=== PATIENT | female | born 1985 | race Two or more races ===

== ENCOUNTER 2016-05-03 17:54 | Observation (INO) | payer SELFPAY ==
[2016-05-03] MEDS ORDERED: ACETAMINOPHEN 325 MG TABLET. PO PRN (18:45)
[2016-05-03] MEDS ORDERED: IV RINGERS,LACTATED 1000ML 1,000 ML IV SCH (19:00)
[2016-05-03] MEDS ORDERED: HYDROXYZINE IM 50 MG/ML VIAL. IM ONE (19:00)
[2016-05-03 19:58] VITALS: BP 112/66
[2016-05-03] MEDS ORDERED: TERBUTALINE 1 MG/ML VIAL. SQ ONE (20:00)
--- NOTE | 2016-05-03 23:05 | RAD ---
PROCEDURE Limited OB ultrasound. HISTORY Patient fell down stairs. Pain and contractions. Possible placenta previa. TECHNIQUE Limited OB ultrasound was performed. No comparison for this is provided at the time of dictation. FINDINGS Single live intrauterine has heart tones of 137 beats per minute. Estimated gestational age by ultrasound is 31 weeks 2 days. Patient is clinically 30 weeks 0 days. Biparietal diameter measures 7.47 centimeters, 30 weeks 0 days. Head circumference is 28.69 centimeters, 31 weeks 4 days. Abdominal circumference is 28.40 centimeters, 32 weeks 3 days. Femur length is 5.97 centimeters, 31 weeks 1 day. HC/AC ratio is 1.01. Estimated weight is 1824 grams, 69th percentile. Presentation is cephalic. There is no previa or abruption. Placenta is anterior. Internal cervical os demonstrates no funneling. The endocervical canal is prominent measuring a centimeter in diameter, although amniotic fluid index is within normal limits. Cervix appears normal in length. IMPRESSION - Single live intrauterine measures 31 weeks 2 days by ultrasound. heart tones of 137 beats per minute are noted. - Amniotic fluid index is within normal limits. - No evidence of previa or abruption. Cervix appears normal in length without funneling, although internal cervical os is prominent diffusely, 1 centimeter in diameter. Electronically signed by: Harvey Mckeon MD (May 03, 2016 23:03:54)
== END 2016-05-03 22:45 | disposition home or self-care (01) ==
LOC: 3 SO LND 17:54
PROVIDERS: ADMIT Obstetrics & Gynecology; ATTEND Obstetrics & Gynecology
DX: O26.893 Other specified pregnancy related conditions, third trimester (principal); R10.30 Lower abdominal pain, unspecified; M54.9 Dorsalgia, unspecified; M79.652 Pain in left thigh; M79.651 Pain in right thigh; W10.9XXA Fall (on) (from) unspecified stairs and steps, initial encounter; Y93.89 Activity, other specified; Y92.89 Other specified places as the place of occurrence of the external cause; Y99.8 Other external cause status
CPT/HCPCS: 76815; 96360; G0378; G0379; J3105; J3410; J7120

== ENCOUNTER 2016-06-01 07:00 | Inpatient (IN) | payer SELFPAY ==
[~2016-06-01] VITALS: Ht 152.4 cm; Wt 66.2 kg
[2016-06-01] MEDS ORDERED: MAGNESIUM SULFATE 4GM 100 ML IV ONE (08:30)
[2016-06-01] MEDS: MAGNESIUM SULFATE 20GM 500 ML IV SCH ×2 (08:55→19:21)
[2016-06-01] MEDS ORDERED: MAGNESIUM SULFATE IV ONE (09:00)
[2016-06-01] MEDS ORDERED: fentaNYL PF VIAL 100 MCG/2 ML VIAL IV PRN (09:00)
[2016-06-01] MEDS ORDERED: 0.9 % SODIUM CHLORIDE 10 ML DISP.SYRIN. IV PRN (09:00)
[2016-06-01] MEDS ORDERED: DEXTROSE 5% IV ONE (09:00)
[2016-06-01] MEDS ORDERED: TERBUTALINE 1 MG/ML VIAL. SQ PRN (09:00)
[2016-06-01] MEDS ORDERED: AMPICILLIN SODIUM 2 GM in IV NORMAL SALINE 100ML 100 ML IV ONE (09:00)
[2016-06-01] MEDS ORDERED: IBUPROFEN 600 MG TABLET. PO PRN (09:00)
[2016-06-01] MEDS ORDERED: OXYTOCIN 30 UNIT/500 ML PREMIX 500 ML IV PRN (09:00)
[2016-06-01] MEDS ORDERED: LIDOCAINE 1% PF 30 ML VIAL. INJ PRN (09:00)
[2016-06-01] MEDS: BETAMET ACET&NA PHOS 30 MG/5 ML VIAL. IM SCH (09:01)
[2016-06-01] MEDS: ERYTHROMYCIN BASE 250 MG TABLET PO SCH ×3 (10:04→21:07)
--- NOTE | 2016-06-01 11:04 | PDOC1 ---
OB - History Hx of Present Care: Good Care Ultrasounds: Normal mid trimester US Obstetrical Complications: None Medical Complications: None Other Concerns: Previous c/s Past Family/Social History * Past Medical, Surgical, Family and Obstetric Histories reviewed from chart. Rubella: Immune RPR/VDRL: Negative GBS Status: Unknown HBsAG: Negative OB - Chief Complaint & HPI Date of Admission: Date of Admission: Jun 01, 2016 at 07:00 Chief Complaint/History : 2 Para: 1 EGA: 34 Reason for admission: rupture of membranes Admission Nurse Assessment Rev: Yes Problems: OB - Admission Exam Physical Exam Vitals: VS - Last 72 Hours, by Label Date Time Temp Pulse Resp B/P Pulse Ox O2 Delivery O2 Flow Rate FiO2 06/01/16 09:56 98.1 98.1 HEENT: Normal Heart: Regular Rate Lungs: Clear Abdomen: Gravid, Non tender, Soft Extremities: Edema Reflexes: Normal Cervical Dilatation: 2cm Effacement: 0% Station: Ballotable Membranes: Ruptured Amniotic Fluid: Clear Heart Rate: Normal Accelerations: Accelerations Present Decelerations: No decelerations Contractions on Admission: 6-10 Minutes Apart Intensity: Mild Text A: 34 wks IUP Previous c/s PPROM Sono wt: 2318 gm, vertex GBS unknown P: Admit for labor management. Start IV abx, corticosteroids and magnesium sulfate. Anticipate repeat c/s after steroids completed. CHER LOMBARDI Jr, MD Jun 01, 2016 11:04
[2016-06-01 11:11] LABS: BASO % 0 % (0-3); EOS % 0 % (0-3); HEMATOCRIT 37.2 % (36.0-47.0); HEMOGLOBIN 12.5 g/dL (12.0-15.5); LYMPH # 1.9 x10^3/uL (1.0-4.8); LYMPH % 18 % (24-48); MEAN CORPUSCULAR HEMOGLOBIN 30 pg (25-35); MEAN CORPUSCULAR HGB CONC 34 g/dL (31-37); MEAN CORPUSCULAR VOLUME 89 fL (79-100); MONO % 7 % (0-9); NEUT % 75 % (31-73); PLATELET COUNT 236 x10^3/uL (140-400); RED BLOOD COUNT 4.17 x10^6/uL (3.50-5.40); RED CELL DISTRIBUTION WIDTH 13.3 % (11.5-14.5); WHITE BLOOD COUNT 10.9 x10^3/uL (4.0-11.0)
--- NOTE | 2016-06-01 11:50 | RAD ---
Indication ruptured membranes. Assess size and dates and position. Obstetrical ultrasound examination was performed. The study is limited. Note is made of a previous examination 05/03/2016. A single viable intrauterine fetus is seen. The presentation is vertex. heart rate of a 123 was documented. The femoral length of 6.7 cm, abdominal circumference of 31 cm, head circumference of 29 cm and biparietal diameter of 8.3 cm are compatible with a gestational age of approximately 33 weeks 4 days. The current study would suggest an EDC of 07/16/2016. (Note is made of discrepancy with the examination 05/03/2016. That study suggested an expected date of confinement 07/03/2016). The estimated weight is approximately 2375 g. The amniotic fluid index is low and calculated at 3.9. The cervix was not well demonstrated on this exam. The placenta is predominantly anterior and fundal. IMPRESSION: Single viable intrauterine fetus. Vertex presentation. Calculated MARLIN 3.9. This examination would suggest a gestational age of approximately 33 weeks 4 days. There is a discrepancy on the EDC associated with this examination and the study one month ago.
[2016-06-01] MEDS: NORMAL SALINE IV SCH ×3 (12:50→21:07)
[2016-06-01] MEDS: AMPICILLIN SODIUM IV SCH ×3 (12:50→21:07)
[2016-06-01] MEDS: IV RINGERS,LACTATED 1000ML 1,000 ML IV SCH ×3 (12:50→22:48)
[2016-06-01] MEDS ORDERED: AMPICILLIN SODIUM 1 GM in IV NORMAL SALINE 50ML 50 ML IV SCH (13:00)
[2016-06-02] MEDS: NORMAL SALINE IV SCH ×5 (02:20→21:24)
[2016-06-02] MEDS: AMPICILLIN SODIUM IV SCH ×5 (02:20→21:24)
[2016-06-02 05:29] LABS: BASO % 0 % (0-3); EOS % 0 % (0-3); HEMATOCRIT 32.3 % (36.0-47.0); HEMOGLOBIN 10.6 g/dL (12.0-15.5); LYMPH # 1.5 x10^3/uL (1.0-4.8); LYMPH % 13 % (24-48); MEAN CORPUSCULAR HEMOGLOBIN 30 pg (25-35); MEAN CORPUSCULAR HGB CONC 33 g/dL (31-37); MEAN CORPUSCULAR VOLUME 91 fL (79-100); MONO % 6 % (0-9); NEUT % 81 % (31-73); PLATELET COUNT 224 x10^3/uL (140-400); RED BLOOD COUNT 3.55 x10^6/uL (3.50-5.40); RED CELL DISTRIBUTION WIDTH 13.6 % (11.5-14.5)
[2016-06-02] MEDS: MAGNESIUM SULFATE 20GM 500 ML IV SCH ×2 (05:29→15:30)
[2016-06-02 06:18] LABS: RPR REFLEX Non Reactive (Non Reactive)
--- NOTE | 2016-06-02 08:12 | PDOC ---
Provider Note Provider Note Stable uterus NTTP +FM Infrequent CTX FHT reassuring CCC planned RC/S in AM JULIEN CELIS MD Jun 02, 2016 08:12
[2016-06-02] MEDS: ERYTHROMYCIN BASE 250 MG TABLET PO SCH ×3 (10:03→21:24)
[2016-06-02] MEDS: BETAMET ACET&NA PHOS 30 MG/5 ML VIAL. IM SCH (10:04)
[2016-06-02] MEDS: IV RINGERS,LACTATED 1000ML 1,000 ML IV SCH (15:30)
[2016-06-03] VITALS (10 sets, daily range): BP systolic 85–123; BP diastolic 34–68
[2016-06-03] MEDS: NORMAL SALINE IV SCH ×3 (00:33→09:00)
[2016-06-03] MEDS: MAGNESIUM SULFATE 20GM 500 ML IV SCH (00:33)
[2016-06-03] MEDS: AMPICILLIN SODIUM IV SCH ×3 (00:33→09:00)
[2016-06-03] MEDS ORDERED: CITRIC ACID/SODIUM CITRATE 30 ML SOLUTION. PO PRN (06:45)
[2016-06-03] MEDS ORDERED: HYDROmorphone 2 MG/ML VIAL IV PRN (07:00)
[2016-06-03] MEDS ORDERED: IV RINGERS,LACTATED 1000ML 1,000 ML IV SCH (07:00)
[2016-06-03] MEDS ORDERED: LIDOCAINE 1% 1 ML SYRINGE. ID PRN (07:00)
[2016-06-03] MEDS ORDERED: MORPHINE SULFATE 2 MG/ML DISP.SYRIN. IV PRN (07:00)
[2016-06-03] MEDS ORDERED: PROCHLORPERAZINE 10 MG/2 ML VIAL. IV PRN ×2 (07:00→07:30)
[2016-06-03] MEDS ORDERED: ONDANSETRON PF 4 MG/2 ML VIAL. ONE (07:07)
[2016-06-03] MEDS ORDERED: FAMOTIDINE 20 MG/2 ML VIAL ONE (07:07)
[2016-06-03] MEDS ORDERED: OXYTOCIN 10 UNIT/ML VIAL. ONE (07:08)
[2016-06-03] MEDS ORDERED: SUCCINYLCHOLINE 200 MG/10 ML VIAL. ONE (07:08)
[2016-06-03] MEDS ORDERED: fentaNYL PF VIAL 100 MCG/2 ML VIAL ONE (07:08)
[2016-06-03] MEDS ORDERED: MORPHINE PF 5 MG/10 ML VIAL. ONE (07:09)
[2016-06-03 07:15] LABS: BASO % 0 % (0-3); EOS % 0 % (0-3); HEMATOCRIT 32.1 % (36.0-47.0); HEMOGLOBIN 10.7 g/dL (12.0-15.5); LYMPH # 1.6 x10^3/uL (1.0-4.8); LYMPH % 11 % (24-48); MEAN CORPUSCULAR HEMOGLOBIN 30 pg (25-35); MEAN CORPUSCULAR HGB CONC 33 g/dL (31-37); MEAN CORPUSCULAR VOLUME 91 fL (79-100); MONO % 9 % (0-9); NEUT % 80 % (31-73); PLATELET COUNT 242 x10^3/uL (140-400); RED BLOOD COUNT 3.54 x10^6/uL (3.50-5.40); RED CELL DISTRIBUTION WIDTH 13.4 % (11.5-14.5); WHITE BLOOD COUNT 13.9 x10^3/uL (4.0-11.0)
[2016-06-03] MEDS ORDERED: diphenhydrAMINE 50 MG/ML VIAL IV PRN ×2 (07:30)
[2016-06-03] MEDS ORDERED: ONDANSETRON PF 4 MG/2 ML VIAL. IV PRN ×2 (07:30→09:00)
[2016-06-03] MEDS ORDERED: NALOXONE 0.4 MG/ML VIAL. IV PRN (07:30)
[2016-06-03] MEDS ORDERED: NALBUPHINE 10 MG/ML AMPUL. IV PRN (07:30)
[2016-06-03] MEDS ORDERED: ATROPINE 0.5 MG/5 ML DISP.SYRIN. IV PRN (07:30)
[2016-06-03] MEDS ORDERED: KETOROLAC TROMETHAMINE 30 MG/ML INJ. IV ONE (07:30)
[2016-06-03 08:04] LABS: PLT ESTIMATE ADEQUATE (ADEQUATE); POLYCHROMASIA PRESENT
[2016-06-03] MEDS ORDERED: ePHEDrine PF IN SALINE 50 MG/5 ML DISP.SYRIN IV ONE (08:13)
--- NOTE | 2016-06-03 08:53 | PDOC ---
BRIEF OPERATIVE NOTE Pre-Op Diagnosis 34 week PPROM Post-Op Diagnosis Same Procedure Performed RLTC/S Surgeon Benjamin Anesthesia Type: Regional Blood Loss 800cc Specimens Obtained none Findings male 5#s 4oz Complications None JULIEN CELIS MD Jun 03, 2016 08:53
[2016-06-03] MEDS ORDERED: oxyCODONE/APAP 5/325 1 TAB TABLET PO PRN (09:00)
[2016-06-03] MEDS ORDERED: OXYTOCIN 30 UNIT/500 ML PREMIX 500 ML IV PRN (09:00)
[2016-06-03] MEDS ORDERED: MMR per PROTOCOL. MC PRN (09:00)
[2016-06-03] MEDS ORDERED: MAGNESIUM HYDROXIDE 2,400 MG/30 ML ORAL.SUSP. PO PRN (09:00)
[2016-06-03] MEDS ORDERED: MAG HYDROX/ALUMINUM HYD/SIMETH 30 ML ORAL.SUSP PO PRN (09:00)
[2016-06-03] MEDS ORDERED: diphenhydrAMINE ORAL ELIXIR 12.5 MG/5 ML ML PO PRN (09:00)
[2016-06-03] MEDS ORDERED: ZOLPIDEM 5 MG TABLET. PO PRN (09:00)
[2016-06-03] MEDS ORDERED: 0.9 % SODIUM CHLORIDE 10 ML DISP.SYRIN. IV PRN (09:00)
[2016-06-03] MEDS: IV RINGERS,LACTATED 1000ML 1,000 ML IV SCH (10:08)
--- NOTE | 2016-06-03 10:52 | OP ---
DATE OF SURGERY: 06/03/2016 PREOPERATIVE DIAGNOSIS: A 34-week intrauterine complicated by pre-term, premature rupture of membranes. POSTOPERATIVE DIAGNOSES: 1. A 34-week intrauterine complicated by pre-term, premature rupture of membranes. 2. Left gluteal cyst. 3. No evidence of a previous vertical hysterotomy. SURGEON: Dr. Kahlil Alexander. COMPUTER TRAINING SPECIALIST: Kenya Boucher M.D. ANESTHESIA: Regional. ESTIMATED BLOOD LOSS: 800 mL. SPECIMENS: None. FINDINGS: Male infant, Apgars 8, 9 and 9, weight 5 pounds 4 ounces. Normal uterus and tubes. Left gluteal cyst appreciated. COMPLICATIONS: None. CONDITION: Stable. DESCRIPTION OF PROCEDURE: After risks, benefits, indications, and alternatives were discussed in detail with the patient, the patient was brought to the OR theater, placed in the supine position with left lateral uterine displacement. After adequate regional anesthesia, the patient was prepped and draped in the usual sterile manner. A previous midline incision was taken down in toto with Bovie cautery and scalpel. Subcutaneous tissue was taken down with Bovie cautery. Parietal peritoneum was then entered bluntly after incising the fascia with a gloved hand. The fascial incision was extended superiorly and inferiorly with Bovie cautery. Sponges were placed within the gutters. Bladder blade was placed. Bladder flap was created. There were some uterine adhesions at the lower uterine segment, most likely from the previous low-transverse hysterotomy incision, and a low-transverse hysterotomy incision was made well above the bladder and adhesions with a scalpel and carried down through the deeper, upper, and lower uterine segments with the scalpel using Allis clamps to clear the myometrium from the parts. Once into the endometrial cavity, the incision was extended laterally and upwardly separately with bandage scissors. The gloved hand was placed within the lower uterine segment and used to elevate head. With fundal pressure from the housekeeping assistant, the was delivered on the anterior abdominal wall. Infant cried spontaneously and moved all extremities. Approximately, 40 seconds were ____ along with cord stripping to assure good blood supply to the infant. Cord was doubly clamped and transected between the two clamps. The was handed off to nursing care in attendance after it was bulb-suctioned. Cord blood samples were taken, placenta delivered spontaneously intact, 3-vessel cord. Uterus was extricated on the anterior abdominal wall, wrapped ____ on the laparotomy sponge. Any adherent membranes were wiped free with laparotomy sponge. The low-transverse hysterotomy incision was re-approximated with 0 Monocryl in a running locking manner and imbricated with 0 Monocryl in a vertical mattress stitch fashion. Posterior cul-de-sac was inspected and noted to be free of any blood or debris. The gluteal cyst on the left was noted. The uterus was placed back within this pelvic cavity. The previous two sponges were removed. The lower uterine segment was once again inspected and noted to be hemostatic. The rectus fascia along with the peritoneum was re-approximated with 0 PDS in a running manner. The skin was re-approximated with 3-0 Vicryl in an interrupted fashion x 3 stitches, taking off the incision. The remaining incision was re-approximated with Insorb love. Sponge, needle and instrument counts were correct x 2 per the nursing staff. KAHLIL ALEXANDER MD DR: JOELLE/matt JOB#: [id number] / [id number]
[2016-06-03] MEDS: IBUPROFEN 800 MG TABLET. PO SCH (14:00)
[2016-06-03] MEDS ORDERED: KETOROLAC TROMETHAMINE 30 MG/ML INJ. IV PRN (16:45)
[2016-06-03] MEDS ORDERED: FERROUS SULFATE 325 MG TABLET. PO SCH (17:00)
[2016-06-04 05:57] LABS: BASO % 0 % (0-3); EOS % 0 % (0-3); HEMATOCRIT 30.2 % (36.0-47.0); HEMOGLOBIN 10.3 g/dL (12.0-15.5); LYMPH # 2.1 x10^3/uL (1.0-4.8); LYMPH % 18 % (24-48); MEAN CORPUSCULAR HEMOGLOBIN 31 pg (25-35); MEAN CORPUSCULAR HGB CONC 34 g/dL (31-37); MEAN CORPUSCULAR VOLUME 90 fL (79-100); MONO % 9 % (0-9); NEUT % 73 % (31-73); PLATELET COUNT 211 x10^3/uL (140-400); RED BLOOD COUNT 3.35 x10^6/uL (3.50-5.40); RED CELL DISTRIBUTION WIDTH 13.6 % (11.5-14.5); WHITE BLOOD COUNT 11.8 x10^3/uL (4.0-11.0)
[2016-06-04 06:00] VITALS: BP 97/61
[2016-06-04] MEDS: IBUPROFEN 800 MG TABLET. PO SCH ×3 (06:21→21:31)
[2016-06-04] MEDS: SIMETHICONE 80 MG TAB.CHEW PO PRN ×2 (09:06→14:36)
[2016-06-04] MEDS: DOCUSATE SODIUM 100 MG CAPSULE. PO PRN ×2 (09:06→17:42)
[2016-06-04 10:38] VITALS: BP 110/69
[2016-06-04 15:00] VITALS: BP 119/59
[2016-06-04] MEDS: oxyCODONE/APAP 5/325 1 TAB TABLET PO PRN (17:43)
[2016-06-04 23:03] VITALS: BP 115/70
[2016-06-05] MEDS: IBUPROFEN 800 MG TABLET. PO SCH ×2 (05:57→20:01)
[2016-06-05] MEDS: oxyCODONE/APAP 5/325 1 TAB TABLET PO PRN (08:27)
[2016-06-05] MEDS: DOCUSATE SODIUM 100 MG CAPSULE. PO PRN ×2 (08:27→20:01)
--- NOTE | 2016-06-05 16:14 | PDOC ---
OB Progress Note Date of Service 06/05/16 Time of Evaluation 1610 Problem List Problems Medical Problems: (1) premature rupture of membranes (PPROM) with unknown onset of labor Status: Acute Notes Pt. feeling well. Breast feeding. Pain controlled. Lab Laboratory Tests Test 06/04/16 05:35 White Blood Count 11.8x10^3/uL (4.0-11.0) Red Blood Count 3.35x10^6/uL (3.50-5.40) Hemoglobin 10.3g/dL (12.0-15.5) Hematocrit 30.2% (36.0-47.0) Mean Corpuscular Volume 90fL (79-100) Mean Corpuscular Hemoglobin 31pg (25-35) Mean Corpuscular Hemoglobin Concent 34g/dL (31-37) Red Cell Distribution Width 13.6% (11.5-14.5) Platelet Count 211x10^3/uL (140-400) Neutrophils (%) (Auto) 73% (31-73) Lymphocytes (%) (Auto) 18% (24-48) Monocytes (%) (Auto) 9% (0-9) Eosinophils (%) (Auto) 0% (0-3) Basophils (%) (Auto) 0% (0-3) Neutrophils # (Auto) 8.6x10^3uL (1.8-7.7) Lymphocytes # (Auto) 2.1x10^3/uL (1.0-4.8) Monocytes # (Auto) 1.0x10^3/uL (0.0-1.1) Eosinophils # (Auto) 0.0x10^3/uL (0.0-0.7) Basophils # (Auto) 0.0x10^3/uL (0.0-0.2) Medications Current Medications Magnesium Sulfate/ Dextrose 100 ml @ 25 mls/hr 1X ONCE IV ; Start 06/01/16 at 08:30; Stop 06/01/16 at 12:29; Status UNV Ampicillin Sodium 2 gm/Sodium Chloride 100 ml @ 200 mls/hr 1X ONCE IV Last administered on 06/01/16t 09:00; Start 06/01/16 at 09:00; Stop 06/01/16 at 09:29 ; Status DC Ampicillin Sodium 1 gm/Sodium Chloride 50 ml @ 100 mls/hr Q4H IV ; Start at 13:00; Stop 06/01/16 at 13:00; Status DC Magnesium Sulfate (Magnesium Sulfate PREMIX 20GM) 500 ml @ 50 mls/hr Q10H IV Last administered on 06/03/16 00:33; Start 06/01/16 at 08:30; Stop 06/03/16 at 11:50; Status DC Betamethasone Acet/Betameth SodPhos 12 mg 12 mg Q24H IM Last administered on 10:04; Start 06/01/16 at 09:00; Stop 06/02/16 at 09:01; Status DC Magnesium Sulfate/ Dextrose 112 ml @ 224 mls/hr 1X ONCE IV Last administered on 06/01/16 08:54; Start 06/01/16 at 09:00; Stop 06/01/16 at 09:29; Status DC Sodium Chloride 3 ml 3 ml QSHIFT PRN IV AFTER MEDS AND BLOOD DRAWS; Start 06/01 at 09:00; Stop 06/03/16 at 11:50; Status DC Lactated Ringer's (Iv Lactated Ringers) 1,000 ml @ 125 mls/hr Q8H IV Last administered on 06/03/16 10:08; Start 06/01/16 at 08:56; Stop 06/03/16 at 11:50 ; Status DC Fentanyl Citrate (Fentanyl 2ml Vial) 100 mcg PRN Q10MIN PRN IV Labor pain; Start 06/01/16 at 09:00; Stop 06/03/16 at 11:50; Status DC Terbutaline Sulfate (Brethine) 0.25 mg 1X PRN PRN SQ SEE COMMENTS; Start at 09:00; Stop 06/02/16 at 08:59; Status DC Lidocaine HCl 30 ml 30 ml 1X PRN PRN INJ SEE COMMENTS; Start 06/01/16 at 09:00 ; Stop 06/03/16 at 08:59; Status DC Oxytocin/Sodium Chloride (Oxytocin Premix Infusion) 500 ml @ 0 mls/hr CONT PRN PRN IV Post delivery bleeding; Start 06/01/16 at 09:00; Stop 06/03/16 at 11:50; Status DC Ibuprofen (Motrin) 600 mg PRN Q6HRS PRN PO PAIN; Start 06/01/16 at 09:00; Stop 06/03/16 at 11:50; Status DC Erythromycin 250 mg 250 mg TID PO Last administered on 06/02/16 21:24; Start 06/01/16 at 10:00; Stop 06/03/16 at 11:50; Status DC Ampicillin Sodium/ Sodium Chloride (Omnipen/Iv Sodium Chloride 0.9% 50ml) 50 ml @ 100 mls/hr Q4H IV Last administered on 06/01/16 16:58; Start 06/01/16 at 13 :00; Stop 06/01/16 at 21:00; Status DC Diazepam 5 mg 5 mg 1X ONCE IV ; Start 06/01/16 at 19:00; Stop 06/01/16 at 19:06 ; Status DC Ampicillin Sodium/ Sodium Chloride (Omnipen/Iv Sodium Chloride 0.9% 50ml) 100 ml @ 200 mls/hr Q4H IV Last administered on 06/03/16 05:00; Start 06/02/16 at 01:00; Stop 06/03/16 at 11:50; Status DC Morphine Sulfate 1 mg 1 mg PRN Q10MIN PRN IV SEVERE PAIN; Start 06/03/16 at 07: 00; Stop 06/03/16 at 11:51; Status DC Lactated Ringer's (Iv Lactated Ringers) 1,000 ml @ 0 mls/hr Q0M IV ; Start at 07:00; Stop 06/03/16 at 11:50; Status DC Lidocaine HCl 2 ml PRN 1X PRN ID PRIOR TO IV START; Start 06/03/16 at 07:00; Stop 06/03/16 at 11:50; Status DC Hydromorphone HCl (Dilaudid) 0.5 mg PRN Q10MIN PRN IV SEV PAIN, Second choice; Start 06/03/16 at 07:00; Stop 06/03/16 at 11:50; Status DC Prochlorperazine Edisylate 5 mg 5 mg PACU PRN PRN IV NAUSEA, MRX1; Start at 07:00; Stop 06/03/16 at 11:51; Status DC Cefazolin Sodium/ Dextrose (Ancef 2gm Premix) 50 ml @ 100 mls/hr PRN 1X PRN IV FOR ; Start 06/03/16 at 07:00; Stop 06/03/16 at 11:50; Status DC Citric Acid/ Sodium Citrate (Bicitra) 30 ml PRN 1X PRN PO Last administered on 06/03/16 07:38; Start 06/03/16 at 06:45; Stop 06/03/16 at 11:50 ; Status DC Famotidine (Pepcid) 20 mg STK-MED ONCE .ROUTE ; Start 06/03/16 at 07:07; Stop at 07:08; Status DC Ondansetron HCl (Zofran) 4 mg STK-MED ONCE .ROUTE ; Start 06/03/16 at 07:07; Stop 06/03/16 at 07:08; Status DC Oxytocin (Pitocin) 10 unit STK-MED ONCE .ROUTE ; Start 06/03/16 at 07:08; Stop 06/03/16 at 07:09; Status DC Succinylcholine Chloride (Anectine) 200 mg STK-MED ONCE .ROUTE ; Start 06/03/16 at 07:08; Stop 06/03/16 at 07:09; Status DC Fentanyl Citrate (Fentanyl 2ml Vial) 100 mcg STK-MED ONCE .ROUTE ; Start at 07:08; Stop 06/03/16 at 07:09; Status DC Morphine Sulfate (Morphine Preservative Free) 5 mg STK-MED ONCE .ROUTE ; Start 06/03/16 at 07:09; Stop 06/03/16 at 07:10; Status DC Ketorolac Tromethamine (Toradol) 30 mg 1X ONCE IV Last administered on 11:08; Start 06/03/16 at 07:30; Stop 06/03/16 at 07:36; Status DC Diphenhydramine HCl (Benadryl) 25 mg PRN Q4HRS PRN IV ITCHING Last administered on 06/03/16 20:35; Start 06/03/16 at 07:30; Stop 06/04/16 at 07:29 ; Status DC Ondansetron HCl (Zofran) 4 mg PRN Q6HRS PRN IV NAUSEA/VOMITING; Start 06/03/16 at 07:30; Stop 06/04/16 at 07:29; Status DC Prochlorperazine Edisylate (Compazine) 5 mg PRN Q6HRS PRN IV NAUSEA/VOMITING; Start 06/03/16 at 07:30; Stop 06/04/16 at 07:29; Status DC Diphenhydramine HCl (Benadryl) 12.5 mg PRN Q2HR PRN IV ITCHING; Start 06/03/16 at 07:30; Stop 06/04/16 at 07:29; Status DC Nalbuphine HCl (Nubain) 2.5 mg PRN Q2HR PRN IV PAIN; Start 06/03/16 at 07:30; Stop 06/04/16 at 07:29; Status DC Atropine Sulfate 0.5 mg PRN 1X PRN IV SEE COMMENTS; Start 06/03/16 at 07:30; Stop 06/04/16 at 07:29; Status DC Naloxone HCl (Narcan) 0.04 mg PRN Q2MIN PRN IV SEE COMMENTS; Start 06/03/16 at 07:30; Stop 06/04/16 at 07:29; Status DC Ephedrine Sulfate 50 mg STK-MED ONCE IV ; Start 06/03/16 at 08:13; Stop at 08:14; Status DC Sodium Chloride 3 ml 3 ml QSHIFT PRN IV AFTER MEDS AND BLOOD DRAWS; Start 06/03 at 09:00 Oxytocin/Sodium Chloride (Oxytocin Premix Infusion) 500 ml @ 125 mls/hr CONT PRN IV EXCESSIVE POST- BLEEDING; Start 06/03/16 at 09:00; Stop 06/03/16 at 16:59; Status DC Ibuprofen (Motrin) 800 mg Q8HRS PO Last administered on 06/05/16 05:57; Start 06/03/16 at 14:00 Ondansetron HCl (Zofran) 4 mg PRN Q6HRS PRN IV NAUSEA/VOMITING; Start 06/03/16 at 09:00 Docusate Sodium (Colace) 100 mg PRN BID PRN PO CONSTIPATION Last administered on 06/05/16 08:27; Start 06/03/16 at 09:00 Magnesium Hydroxide (Milk Of Magnesia) 2,400 mg PRN DAILY PRN PO CONSTIPATION; Start 06/03/16 at 09:00 Al Hydroxide/Mg Hydroxide (Mylanta Plus Xs) 30 ml PRN Q4HRS PRN PO HEARTBURN / GAS; Start 06/03/16 at 09:00 Simethicone (Gas-X) 80 mg PRN AFTMEALHC PRN PO GAS / BLOATING Last administered on 06/04/16 14:36; Start 06/03/16 at 09:00 Diphenhydramine HCl (Benadryl Oral Elixir) 12.5 mg PRN Q6HRS PRN PO ITCHING; Start 06/03/16 at 09:00 Ferrous Sulfate (Feosol) 325 mg BIDWMEALS PO ; Start 06/03/16 at 17:00 Zolpidem Tartrate (Ambien) 5 mg PRN QHS PRN PO INSOMNIA, MAY REPEAT X1; Start 06/03/16 at 09:00 Info (Do NOT chart on this placeholder) 1 ea PRN 1X PRN MC SEE COMMENTS; Start 06/03/16 at 09:00 Info (Do NOT chart on this placeholder) 1 ea PRN 1X PRN MC SEE COMMENTS; Start 06/03/16 at 09:00 Oxycodone/ Acetaminophen (Percocet 5/325) 1 tab PRN Q4HRS PRN PO MILD PAIN Last administered on 06/04/16 09:06; Start 06/03/16 at 09:00 Oxycodone/ Acetaminophen 2 tab 2 tab PRN Q4HRS PRN PO MODERATE PAIN, SEVERE PAIN Last administered on 06/05/16 08:27; Start 06/03/16 at 09:00 Cefazolin Sodium/ Sodium Chloride (Ancef/Iv Sodium Chloride 0.9% 50ml) 50 ml @ 100 mls/hr Q8HRS IV Last administered on 06/04/16 06:22; Start 06/03/16 at 14: 00; Stop 06/04/16 at 06:29; Status DC Ketorolac Tromethamine (Toradol) 30 mg PRN Q6HRS PRN IV PAIN Last administered on 06/03/16 17:04; Start 06/03/16 at 16:45; Stop 06/08/16 at 16:44 Exam Abd: soft,mild tenderness, fundus firm Incision site: clean, dry and intact Assessment POD#2 s/p c /s Plan of Care: Continue current Tx, Mgmt CHER LOMBARDI Jr, MD Jun 05, 2016 16:14
[2016-06-05 18:33] VITALS: BP 107/69
[2016-06-05 23:00] VITALS: BP 122/66
[2016-06-06 06:22] VITALS: BP 110/74
[2016-06-06] MEDS: DOCUSATE SODIUM 100 MG CAPSULE. PO PRN (09:02)
[2016-06-06] MEDS: IBUPROFEN 800 MG TABLET. PO SCH (09:02)
--- NOTE | 2016-06-06 11:32 | PDOC3 ---
OB DISCHARGE SUMMARY DATE OF ADMISSION: 06/01/16 DATE OF DISCHARGE: 06/06/16 REASON FOR ADMISSION: PPROM PROCEDURES: NST, Ultrasound, Mgmt of OB Complications, Biophysicial Profile INTRAPARTUM PROCEDURES: : Low Cerv Trans PROCEDURES: Antibiotics, HCT, HGB PROBLEM LIST AT DISCHARGE Problems Medical Problems: (1) premature rupture of membranes (PPROM) with unknown onset of labor Status: Acute DISCHARGE DIAGNOSIS: Others ( delivery) DISCHARGE INFORMATION: Activity, Diet HOSPITAL COURSE Unremarkable CONDITION AT DISCHARGE Stable JULIEN CELIS MD Jun 06, 2016 11:32
[2016-06-06 12:54] VITALS: BP 111/71
--- NOTE | 2016-06-07 14:47 | PATHOLOGY ---
PATHOLOGY REPORT * * * * * * * * FINAL DIAGNOSIS: Placenta: - Third trimester placenta, 440 grams. - Attached trivascular umbilical cord and membranes without significant inflammation. - Placental parenchyma with no significant histopathologic diagnosis. (DAKSHA:; d/t: 06/07/16) REPORT ELECTRONICALLY SIGNED BY: Kendall Anderson M.D. DATE/TIME: 06/07/2016 14:46 * * * * * * * * GROSS PATHOLOGY: Received in formalin labeled "Maureen Leon, placenta," is a holland placenta, with attached membranes and umbilical cord. The trimmed placental weight is 440 grams and the disc measures 17.8 x 14.9 x 3.4 cm. The membranes are pale singh and translucent in appearance, and the site of membrane rupture is at the placental margin. The surface is intact displaying a normal arborizing vasculature pattern. The 3 vessel umbilical cord measures 53.2 cm in length and ranges in diameter from 1.1 to 3.4 cm and inserts centrally, 6.6 cm from the closest placental margin. The umbilical cord is white-singh and edematous in appearance with minimal helical twisting. The maternal surface is intact and complete; a moderate amount of adherent blood coagulum is seen on the surface. Sectioning reveals red-brown cut surfaces with no grossly distinct nodules or lesions. Sections are submitted as follows: A1 umbilical cord and surface vessels A2 shared services representative section of edematous umbilical cord A3 membrane roll and peripheral placental segment A4 full-thickness placental cross-section. (CAA; 06/05/2016) INITIAL CPT CODE(S): A; 94569 Professional services performed by [facility] at [address] [address] Technical services performed by [facility] at [address] [place] [address], [address], [place] [address]. SPECIMEN(S) RECEIVED: A.Placenta CLINICAL HISTORY: IUP @ 34.5 weeks with PROM and previous , 5lb 5oz male via repeat @ 0820 on 06/03/16, apgars 8-9-9, EDC 07/12/16, PATIENT: MAUREEN PERALES /AGE: 1011/17/1985 (Age: 30) PATIENT #: [id number] ALT CASE #: SPECIMEN COLLECTION DATE: 06/03/2016 SPECIMEN RECEIVED DATE: 06/04/2016 [facility] - [id number] [place] [address] - PHONE: [phone] * * * END OF REPORT * * *
== END 2016-06-06 15:13 | disposition home or self-care (01) | DRG 765 ==
LOC: OBSVTOIN 07:00 → 3 SO LND 07:00
PROVIDERS: ADMIT Specialist; ATTEND Specialist
PROC: 10D00Z1 Extraction of Products of Conception, Low, Open Approach (ICD-10-PCS; principal; 2016-06-03)
DX: O42.913 Preterm premature rupture of membranes, unspecified as to length of time between rupture and onset of labor, third trimester (principal); D62 Acute posthemorrhagic anemia; O34.211 Maternal care for low transverse scar from previous cesarean delivery; O75.89 Other specified complications of labor and delivery; N94.89 Other specified conditions associated with female genital organs and menstrual cycle; O34.40 Maternal care for other abnormalities of cervix, unspecified trimester; Z37.0 Single live birth; Z3A.34 34 weeks gestation of pregnancy
CPT/HCPCS: 36415; 76805; 85007; 85027; 86593; 86762; 86850; 86900; 86901; 87653; 88307; J0290; J0330; J0690; J0702; J1200; J1885; J2270; J2405; J2590; J3010; J3475; J7120; S0028

== ENCOUNTER 2019-12-14 20:39 | Emergency (ER) | payer SELFPAY ==
[~2019-12-14] VITALS: Ht 160 cm; Wt 70.0 kg
[2019-12-14 21:29] LABS: BILIRUBIN,URINE NEGATIVE (NEG); CLARITY,URINE CLEAR; COLOR,URINE YELLOW; NITRITE,URINE NEGATIVE (NEG); PROTEIN,URINE 30 mg/dL (NEG-TRACE); UROBILINOGEN,URINE 0.2 mg/dL (0.2 mg/dL)
[2019-12-14 21:40] LABS: BACTERIA,URINE MODERATE /HPF (0-FEW); RBC,URINE 20-40 /HPF (0-2)
[2019-12-14 21:56] LABS: BASO % 0 % (0-3); EOS % 0 % (0-3); HEMATOCRIT 43.1 % (36.0-47.0); HEMOGLOBIN 14.4 g/dL (12.0-15.5); LYMPH # 0.9 x10^3/uL (1.0-4.8); LYMPH % 7 % (24-48); MEAN CORPUSCULAR HEMOGLOBIN 30 pg (25-35); MEAN CORPUSCULAR HGB CONC 33 g/dL (31-37); MEAN CORPUSCULAR VOLUME 91 fL (79-100); MONO # 0.2 x10^3/uL (0.0-1.1); MONO % 2 % (0-9); NEUT # 11.9 x10^3/uL (1.8-7.7); NEUT % 91 % (31-73); PLATELET COUNT 209 x10^3/uL (140-400); RED BLOOD COUNT 4.74 x10^6/uL (3.50-5.40); RED CELL DISTRIBUTION WIDTH 13.8 % (11.5-14.5); WHITE BLOOD COUNT 13.1 x10^3/uL (4.0-11.0)
[2019-12-14] MEDS ORDERED: IV NORMAL SALINE 1000ML BAG 1,000 ML IV ONE (22:15)
--- NOTE | 2019-12-14 22:24 | ED.ADGEN ---
Past Medical History Past Medical History: No Pertinent History Past Surgical History: No Surgical History Smoking Status: Never Smoker Alcohol Use: None General Adult EDM: Chief Complaint: ABDOMINAL PAIN IN HPI: HPI: Patient is a 34 year old female, accompanied by her , who presents to the emergency room with complaints of suprapubic and left flank pain that started this morning. She denies any pain with urination, blood in her urine, irregular vaginal discharge, or vaginal bleeding. Patient states she is currently . Her last menstrual cycle was sometime in October, she is unsure what her due date is. Patient is 4, para 2, with 1 previous miscarriage. She also complains of nausea and vomiting for the last 2 days. She denies any blood in her vomit. Patient states she believes she is currently about 5 weeks . She currently rates the pain in her left flank 8 out of 10 on the pain scale, she denies any alleviating or exacerbating factors, the pain is constant. Review of Systems: Review of Systems: Constitutional: Denies fever or chills. [] HENT: Denies nasal congestion or sore throat. [] Respiratory: Denies cough or shortness of breath. [] Cardiovascular: Denies chest pain or edema. [] GI: See HPI : See HPI Musculoskeletal: Denies joint pain, see HPI Integument: Denies rash. [] Neurologic: Denies headache Psychiatric: Denies depression or anxiety. [] Current Medications: Current Medications Medications (Trade) Dose Ordered Sig/Laila Start Time Stop Time Status Last Admin Dose Admin Ceftriaxone Sodium (Rocephin) 1 gm 1X ONCE 12/14/19 23:30 12/14/19 23:31 DC 12/15/19 00:02 1 GM Sodium Chloride 1,000 ml @ 1,000 mls/hr 1X ONCE 12/14/19 22:15 12/14/19 23:14 DC 12/14/19 22:15 1,000 MLS/HR Allergies: Allergies: Allergies Coded Allergies Type Severity Reaction Last Updated Verified No Known Drug Allergies 05/03/16 No Physical Exam: PE: Constitutional: Well developed, well nourished, no acute distress, non-toxic appearance. [] HENT: Normocephalic, atraumatic, bilateral external ears normal, nose normal. [] Eyes: PERRLA, EOMI, conjunctiva normal, no discharge. [] Neck: Normal range of motion, no stridor. [] Cardiovascular:Heart rate regular rhythm, no murmur [] Lungs & Thorax: Respirations even and unlabored, no retractions, no respiratory distress Abdomen: soft, suprapubic tenderness, no masses, no pulsatile masses. [] Skin: Warm, dry, no erythema, no rash. [] Extremities: No cyanosis, ROM intact, no edema. [] Neurologic: Alert and oriented X 3, no focal deficits noted. [] Psychologic: Affect normal, judgement normal, mood normal. [] Current Patient Data: Labs: Laboratory Tests Test 12/14/19 20:47 12/14/19 20:55 12/14/19 21:40 Urine Collection Type Void Urine Color Yellow Urine Clarity Clear Urine pH 6.0 (<5.0-8.0) Urine Specific Adrian 1.025 (1.000-1.030) Urine Protein 30 mg/dL (NEG-TRACE) Urine Glucose (UA) Negative mg/dL (NEG) Urine Ketones (Stick) >=80 mg/dL (NEG) Urine Blood Large (NEG) Urine Nitrite Negative (NEG) Urine Bilirubin Negative (NEG) Urine Urobilinogen Dipstick 0.2 mg/dL (0.2 mg/dL) Urine Leukocyte Esterase Negative (NEG) Urine RBC 20-40 /HPF (0-2) Urine WBC 11-20 /HPF (0-4) Urine Squamous Epithelial Cells Mod /LPF Urine Bacteria Moderate /HPF (0-FEW) Urine Mucus Marked /LPF POC Urine HCG, Qualitative Hcg positive (Negative) White Blood Count 13.1 x10^3/uL (4.0-11.0) H Red Blood Count 4.74 x10^6/uL (3.50-5.40) Hemoglobin 14.4 g/dL (12.0-15.5) Hematocrit 43.1 % (36.0-47.0) Mean Corpuscular Volume 91 fL (79-100) Mean Corpuscular Hemoglobin 30 pg (25-35) Mean Corpuscular Hemoglobin Concent 33 g/dL (31-37) Red Cell Distribution Width 13.8 % (11.5-14.5) Platelet Count 209 x10^3/uL (140-400) Neutrophils (%) (Auto) 91 % (31-73) H Lymphocytes (%) (Auto) 7 % (24-48) L Monocytes (%) (Auto) 2 % (0-9) Eosinophils (%) (Auto) 0 % (0-3) Basophils (%) (Auto) 0 % (0-3) Neutrophils # (Auto) 11.9 x10^3/uL (1.8-7.7) H Lymphocytes # (Auto) 0.9 x10^3/uL (1.0-4.8) L Monocytes # (Auto) 0.2 x10^3/uL (0.0-1.1) Eosinophils # (Auto) 0.0 x10^3/uL (0.0-0.7) Basophils # (Auto) 0.0 x10^3/uL (0.0-0.2) Segmented Neutrophils % 88 % (35-66) H Lymphocytes % 10 % (24-48) L Monocytes % 2 % (0-10) Platelet Estimate Adequate (ADEQUATE) Large Platelets Present Polychromasia Present Maternal Serum HCG Beta Subunit 36192 mIU/mL (0-5) H Laboratory Tests 12/14/19 21:40 Vital Signs: Vital Signs Date Time Temp Pulse Resp B/P (MAP) Pulse Ox O2 Delivery O2 Flow Rate FiO2 12/14/19 21:47 98.4 90 22 150/78 (102) 100 Room Air 98.4 EKG: EKG: [] Heart Score: Risk Factors: Risk Factors: DM, Current or recent (<one month) smoker, HTN, HLP, family history of CAD, obesity. Risk Scores: Score 0 - 3: 2.5% MACE over next 6 weeks - Discharge Home Score 4 - 6: 20.3% MACE over next 6 weeks - Admit for Clinical Observation Score 7 - 10: 72.7% MACE over next 6 weeks - Early Invasive Strategies Radiology/Procedures: Radiology/Procedures: PROCEDURE: RENAL COMPLETE BILATERAL INDICATION: Reason: hematuria, L flank pain / Spl. Instructions: / History: COMPARISON: None. TECHNIQUE: Grayscale and color ultrasound images obtained of the bilateral kidneys and bladder. FINDINGS: Right Kidney: 104 mm. No hydronephrosis. Left Kidney: 96 mm. No hydronephrosis. Bladder: Partially distended with ureter jets seen. IMPRESSION: * No hydronephrosis bilaterally. PROCEDURE: OB <14 WKS W/TV INDICATION: Reason: ABD PAIN. VOMITING. / Spl. Instructions: / History: COMPARISON: None. TECHNIQUE: Grayscale and color ultrasound images uterus and adnexa. Transabdominal and transvaginal images obtained. Transvaginal images were needed to better visualize structures that were limited on transabdominal imaging. FINDINGS: Uterus: 126 x 79 x 53 mm. Intrauterine gestational sac is identified with a small adjacent hypoechoic region. There is some suspected nabothian cysts. There is a pole seen within the endometrial stripe with a heart beat of 132 and crown-rump length of 8 mm. Hypoechoic lesion of the right ovary measuring 22 mm. Hypoechoic structures seen at the vaginal the cervical region measuring 12 mm with internal vascularity. Right Ovary: 31 x 19 x 17 mm. Left Ovary: 43 x 24 x 15 mm. Vascular flow identified to bilateral ovaries. Complex cystic masslike structure within the left adnexa measuring approximately 118 x 78 mm with septations. IMPRESSION: * Intrauterine gestational sac is identified with a pole with a estimated gestational age of 6 weeks and 6 days with a positive heartbeat. There is a small hypoechoic region adjacent which could be from a small subchorionic hematoma. * Within the left adnexa there is a large complex cystic masslike structure identified. Some possible causes would include a complex cystic mass of ovarian origin although a complex fluid collection could also have this appearance but would correlate with infectious symptoms as well to ensure there is not an infectious cause. Follow-up will be needed to ensure that this decreases given that neoplastic causes are within the differential. * Hypoechoic structure is seen at the vaginal to cervical region and has a nonspecific appearance but follow-up will be needed to ensure no growth given that a small solid lesion in the area could have this appearance. [] Course & Med Decision Making: Course & Med Decision Making Pertinent Labs and Imaging studies reviewed. (See chart for details) 34-year-old female presented to the emergency room with complaints of left flank pain 2314-Report to Dr. Khalil at this time. Suspicion for early IUP. Urine is concerning for a urinary tract infection, plan to prescribe Keflex 500 mg p.o. twice daily x7 days for treatment of UTI and provide pt with OBGyn Dr. Posada's information for follow up. Dr Khalil notified that Beta hCG and ultrasound reports are pending, she will follow up on these results and discuss them with the patient. [] Ruba Disclaimer: Ruba Disclaimer: This electronic medical record was generated, in whole or in part, using a voice recognition dictation system. Departure Departure Impression: Primary Impression: Abdominal pain during in first trimester Additional Impressions: Urinary tract infection affecting Flank pain in patient Left ovarian cyst Disposition: HOME SELF CARE/HOMELESS Referrals: BOOM ROGERS MD Patient Instructions: Abdominal Pain During , [id number], - Urinary Tract Infection Additional Instructions: Fill prescription(s) and use as directed. Avoid bladder irritants such as caffeine, carbonation, and spicy foods. Increase clear fluids. Your HCG level today was 57,808. Follow up with OBGyn next week, pelvic rest until cleared by OB. Return to the ER if symptoms worsen or fever develops. Scripts Cephalexin (CEPHALEXIN) 500 Mg Capsule 1 CAP PO BID for 7 Days, #14 CAP 0 Refills Prov: EDSON NAVARRETE APRN 12/14/19 Problem Qualifiers EDSON NAVARRETE APRN Dec 14, 2019 22:24 MARY KHALIL MD Dec 15, 2019 00:21
[2019-12-14 22:38] LABS: % LYMPHS 10 % (24-48); % MONOS 2 % (0-10); % SEGS 88 % (35-66); PLT ESTIMATE ADEQUATE (ADEQUATE)
[2019-12-14 22:39] LABS: POLYCHROMASIA PRESENT
[2019-12-14] MEDS ORDERED: cefTRIAXone IV Push 1 GM VIAL. IVP ONE (23:30)
[2019-12-14] MEDS ORDERED: CEPH500C PO (23:30)
[2019-12-15] VITALS: BP 136/74
--- NOTE | 2019-12-15 00:04 | RAD ---
INDICATION: Reason: hematuria, L flank pain / Spl. Instructions: / History: COMPARISON: None. TECHNIQUE: Grayscale and color ultrasound images obtained of the bilateral kidneys and bladder. FINDINGS: Right Kidney: 104 mm. No hydronephrosis. Left Kidney: 96 mm. No hydronephrosis. Bladder: Partially distended with ureter jets seen. IMPRESSION: * No hydronephrosis bilaterally. Electronically signed by: Vinh Damian MD (12/15/2019 12:01 AM) [id number]
--- NOTE | 2019-12-15 00:10 | RAD ---
INDICATION: Reason: ABD PAIN. VOMITING. / Spl. Instructions: / History: COMPARISON: None. TECHNIQUE: Grayscale and color ultrasound images uterus and adnexa. Transabdominal and transvaginal images obtained. Transvaginal images were needed to better visualize structures that were limited on transabdominal imaging. FINDINGS: Uterus: 126 x 79 x 53 mm. Intrauterine gestational sac is identified with a small adjacent hypoechoic region. There is some suspected nabothian cysts. There is a pole seen within the endometrial stripe with a heart beat of 132 and crown-rump length of 8 mm. Hypoechoic lesion of the right ovary measuring 22 mm. Hypoechoic structures seen at the vaginal the cervical region measuring 12 mm with internal vascularity. Right Ovary: 31 x 19 x 17 mm. Left Ovary: 43 x 24 x 15 mm. Vascular flow identified to bilateral ovaries. Complex cystic masslike structure within the left adnexa measuring approximately 118 x 78 mm with septations. IMPRESSION: * Intrauterine gestational sac is identified with a pole with a estimated gestational age of 6 weeks and 6 days with a positive heartbeat. There is a small hypoechoic region adjacent which could be from a small subchorionic hematoma. * Within the left adnexa there is a large complex cystic masslike structure identified. Some possible causes would include a complex cystic mass of ovarian origin although a complex fluid collection could also have this appearance but would correlate with infectious symptoms as well to ensure there is not an infectious cause. Follow-up will be needed to ensure that this decreases given that neoplastic causes are within the differential. * Hypoechoic structure is seen at the vaginal to cervical region and has a nonspecific appearance but follow-up will be needed to ensure no growth given that a small solid lesion in the area could have this appearance. Electronically signed by: Vinh Damian MD (12/15/2019 12:07 AM) [id number]
== END 2019-12-15 00:55 | disposition home or self-care (01) ==
LOC: ER 20:39
DX: O23.41 Unspecified infection of urinary tract in pregnancy, first trimester (principal); O21.9 Vomiting of pregnancy, unspecified; N83.292 Other ovarian cyst, left side; R10.2 Pelvic and perineal pain; R10.9 Unspecified abdominal pain; Z3A.01 Less than 8 weeks gestation of pregnancy
CPT/HCPCS: 36415; 76770; 76801; 76817; 81001; 81025; 84702; 85007; 85025; 86900; 86901; 87086; 96361; 96374; 99285; J0696; J7030

== ENCOUNTER 2020-05-25 22:19 | Observation (INO) | payer SELFPAY ==
[~2020-05-25] VITALS: Ht 152.4 cm; Wt 75.5 kg
[~2020-05-25 22:19] MED LIST: CEPH500C PO
[2020-05-25 22:30] VITALS: BP 121/78
[2020-05-25] MEDS ORDERED: IV RINGERS,LACTATED 1000ML 1,000 ML IV SCH (22:30)
[2020-05-25 22:40] LABS: BILIRUBIN,URINE NEGATIVE (NEG); CLARITY,URINE CLEAR; COLOR,URINE YELLOW; NITRITE,URINE NEGATIVE (NEG); PH,URINE 7.5 (<5.0-8.0); PROTEIN,URINE NEGATIVE (NEG-TRACE); UROBILINOGEN,URINE 0.2 mg/dL (0.2 mg/dL)
[2020-05-25 22:47] LABS: AMPHETAMINE/METHAMPHETAMINE NEG (NEG); BARBITURATES NEG (NEG); BENZODIAZEPINES NEG (NEG); CANNABINOIDS NEG (NEG); COCAINE NEG (NEG); METHADONE NEG (NEG); OPIATES NEG (NEG); PHENCYCLIDINE NEG (NEG)
[2020-05-25 22:50] LABS: BACTERIA,URINE 0 /HPF (0-FEW); RBC,URINE OCC /HPF (0-2); WBC,URINE OCC /HPF (0-4)
[2020-05-25] MEDS ORDERED: hydrALAZINE 20 MG/ML VIAL. ONE (23:56)
[2020-05-26] MEDS ORDERED: hydrOXYzine IM 50 MG/ML VIAL IM ONE (00:30)
[2020-05-26] MEDS ORDERED: hydrALAZINE 20 MG/ML VIAL. ONE (01:00)
== END 2020-05-26 02:50 | disposition home or self-care (01) ==
LOC: 3 SO LND 22:19
PROVIDERS: ADMIT Obstetrics & Gynecology; ATTEND Obstetrics & Gynecology
DX: O26.893 Other specified pregnancy related conditions, third trimester (principal); R10.9 Unspecified abdominal pain; N89.8 Other specified noninflammatory disorders of vagina; O62.9 Abnormality of forces of labor, unspecified; Z98.891 History of uterine scar from previous surgery; Z3A.30 30 weeks gestation of pregnancy; Z79.899 Other long term (current) drug therapy
CPT/HCPCS: 59025; 80307; 81001; G0378; G0379; J0360; J3410; J7120